=== PATIENT | female | born 1935 | race Two or more races ===

== ENCOUNTER 2024-01-09 11:29 | Emergency (ER) | payer OTHER ==
[~2024-01-09] VITALS: Ht 162.6 cm; Wt 54.4 kg
[~2024-01-09 11:29] MED LIST: ENALAPRIL MALEA10 MG; TESSALON PERLE100 MG PO; TUSSI PRES-B L120 M1 PO
[2024-01-09 15:22] LABS: URINE APPEARANCE Clear; URINE BILIRRUBIN Negative (NEGATIVE); URINE BLOOD Trace; URINE COLOR Yellow; URINE GLUCOSE Negative (NEGATIVE); URINE LEUKOCYTE Negative; URINE NITRATE Negative; URINE PROTEIN Negative (NEGATIVE); URINE UROBILINOGEN 0.2 E.U./dl
[2024-01-09 15:23] LABS: URINE BACTERIA 137.3 uL (0.0-1933); URINE EPITHELIAL CELLS 8.5 uL (0.0-38.8); URINE WBC 10.6 uL (0.0-23.2)
[2024-01-09 15:24] LABS: HEMATOCRIT 36.5 % (36.0-45.00); HEMOGLOBIN 12.2 g/dL (12.0-15.00); MEAN CELL VOLUME 88.1 fL (80.00-100.00); MEAN CORPUSCULAR HEMOGLOBIN 29.4 pg (27.00-32.0); MEAN CORPUSCULAR HGB CONC 33.4 g/dl (32.0-36.0); PLATELET COUNT 305 K/uL (150-450); RED BLOOD COUNT 4.14 M/uL (4.00-6.00)
[2024-01-09 15:48] LABS: CALCIUM 8.9 mg/dL (8.5-10.1); CREATININE SERUM 1.01 mg/dL (0.55-1.02); GFR 51.97; POTASSIUM 3.81 mEq/L (3.5-5.1)
== END 2024-01-09 17:01 ==
LOC: ER 11:29
PROVIDERS: Nurse Practitioner Family
DX: N81.10 Cystocele, unspecified (principal); Z88.6 Allergy status to analgesic agent; M19.90 Unspecified osteoarthritis, unspecified site; I10 Essential (primary) hypertension